=== PATIENT | female | born 1950 | race Caucasian/White ===

== ENCOUNTER 2019-05-15 09:27 | Inpatient (IN) | payer MEDICARE, BC ==
[~2019-05-15] VITALS: Ht 157.5 cm; Wt 59.9 kg
--- NOTE | 2019-05-15 10:07 | NUR ---
JILL FLORENTINO AT BEDSIDE FOR MSE.
[2019-05-15 10:08] LABS: *BILIRUBIN,URIN NEGATIVE (NEGATIVE); *BLOOD, URINE 2+ (NEGATIVE); *CLARITY,URINE SLIGHTLY CLOUDY (CLEAR); *COLOR,URINE YELLOW (YELLOW); *KETONES,URINE 1+ (NEGATIVE); *UROBILINOGEN,URINE 0.2 E.U./dl (NORMAL); LEUKOCYTE ESTERASE ,URINE 1+ (NEGATIVE); NITRITE, URINE POSITIVE (NEGATIVE); PH,URINE 5.5 (5.0-8.0); UGLUCOSE NEGATIVE (NEGATIVE)
[2019-05-15 10:14] LABS: BACTERIA,URINE MANY /HPF (NONE SEEN); SQUAMOUS EPITHELIAL CELL,UR FEW /HPF (NONE SEEN)
[2019-05-15 10:15] LABS: WBC,URINE 20-50 /HPF (0-3)
[2019-05-15] MEDS ORDERED: IV NORMAL SALINE 1000 ML BAG IV ONE (10:15)
[2019-05-15] MEDS ORDERED: ACETAMINOPHEN 325 MG TABLET PO ONE (10:15)
[2019-05-15 10:16] LABS: URINE AMORPHOUS URATE FEW /HPF
[2019-05-15] MEDS ORDERED: ACETAMINOPHEN 325 MG TABLET ONE (10:22)
--- NOTE | 2019-05-15 10:31 | NUR ---
PT TAKEN TO RADIOLOGY FOR CT SCAN.
[2019-05-15 10:36] LABS: BASOPHILS % (AUTO) 0.3 % (0.0-2.0); EOSINOPHILS % (AUTO) 0.2 % (0.0-7.0); HEMATOCRIT 39.6 % (31.2-41.9); HEMOGLOBIN 12.8 g/dL (10.9-14.3); LYMPHOCYTES # (AUTO) 1.1 K/uL (20.0-40.0); LYMPHOCYTES % (AUTO) 10.9 % (20.5-51.5); MEAN CORPUSCULAR HEMOGLOBIN 26.8 uug (24.7-32.8); MEAN CORPUSCULAR HGB CONC 32 g/dL (32.3-35.6); MEAN CORPUSCULAR VOLUME 82.9 fL (75.5-95.3); MONOCYTES # (AUTO) 0.8 K/uL (2.0-10.0); MONOCYTES % (AUTO) 8.4 % (0.0-11.0); NEUTROPHILS # (AUTO) 7.9 K/uL (1.8-8.9); NEUTROPHILS % (AUTO) 80.2 % (38.5-71.5); RED BLOOD CELL COUNT(AUTO) 4.78 MIL/uL (3.63-4.92); WHITE BLOOD COUNT (AUTO) 9.9 K/uL (3.8-11.8)
[2019-05-15 10:38] LABS: CREATININE 0.8 mg/dL (0.6-1.3); POTASSIUM 3.9 mmol/L (3.5-5.1)
--- NOTE | 2019-05-15 10:43 | NUR ---
PT BACK IN ER FROM RADIOLOGY.
[2019-05-15 10:44] LABS: BILIRUBIN,DIRECT 0.1 mg/dL (0.0-0.2); BILIRUBIN,TOTAL 0.6 mg/dL (0.2-1.0); TOTAL PROTEIN, SERUM 7.5 g/dL (6.4-8.2)
[2019-05-15 10:58] LABS: PLATELET COUNT (AUTO) 199 K/uL (179-408)
[2019-05-15] MEDS ORDERED: CEFTRIAXONE 1 G in IV DEXTROSE 5% 50 ML IV ONE (11:15)
[2019-05-15] MEDS ORDERED: CEFTRIAXONE 1 G VIAL ONE (11:24)
[2019-05-15] MEDS ORDERED: ACETAMINOPHEN 325 MG TABLET PO PRN (13:00)
[2019-05-15] MEDS ORDERED: ONDANSETRON 4 MG/2 ML VIAL IV PRN (13:00)
[2019-05-15] MEDS ORDERED: Z GUARD REMEDY PASTE 57 GM TUBE TOP PRN (13:00)
[2019-05-15] MEDS ORDERED: MAGNESIUM HYDROXIDE 30 ML LIQUID UDC PO PRN (13:00)
[2019-05-15] MEDS ORDERED: HYDROCODONE/APAP 5-325MG TABLET PO PRN (13:00)
--- NOTE | 2019-05-15 13:20 | NUR ---
Received patient from ER and admitted to [facility] with diagnosis of UTI, no sob noted at this. no c/o pain at this time. Belongings accounted and signed. md aware of patient arrived in the unit, provide orders and will continue to monitor and continue treatment plan.
--- NOTE | 2019-05-15 13:21 | NUR ---
REPORT WAS GIVEN TO RN M/S. PT WAS TRANSFERED TO ROOM #302.
[2019-05-15 15:28] VITALS: BP 110/64
[2019-05-15] MEDS: IV NS 1000 ML 1,000 ML IV PRN (18:49)
--- NOTE | 2019-05-15 18:59 | NUR ---
PATIENT ALERT AND ORIENTED , ABLE TO MAKE NEEDS KNOWN, AMBULATORY, NO SOB AND NO C/O PAIN AT THIS TIME. IV INTACT AND PATENT ON CONTINUOS FLUID OF NS 75 ML/HR. SAFETY PROVIDED AT ALL TIMES. WILL CONTINUE TO MONITOR.
--- NOTE | 2019-05-15 19:30 | NUR ---
PATIENT ALERT ORIENTED NO SOB NO CHEST PAIN. PATIENT CONTINENT OF BLADDER, REQUIRES MIN ASSIST WITH TOILETING. CONT TO MONITOR.
[2019-05-15 20:00] VITALS: BP 106/57
[2019-05-16 06:01] VITALS: BP 125/62
[2019-05-16] MEDS: PANTOPRAZOLE SODIUM 40 MG TABLET.DR PO SCH (06:02)
[2019-05-16 06:07] LABS: BASOPHILS % (AUTO) 0.1 % (0.0-2.0); EOSINOPHILS % (AUTO) 0.7 % (0.0-7.0); MEAN CORPUSCULAR HEMOGLOBIN 27.2 uug (24.7-32.8); MEAN CORPUSCULAR HGB CONC 33 g/dL (32.3-35.6); MEAN CORPUSCULAR VOLUME 83.6 fL (75.5-95.3); MONOCYTES # (AUTO) 0.5 K/uL (2.0-10.0); MONOCYTES % (AUTO) 8.2 % (0.0-11.0); NEUTROPHILS # (AUTO) 4.9 K/uL (1.8-8.9); PLATELET COUNT (AUTO) 183 K/uL (179-408); RED BLOOD CELL COUNT(AUTO) 4.42 MIL/uL (3.63-4.92); WHITE BLOOD COUNT (AUTO) 6.6 K/uL (3.8-11.8)
[2019-05-16 06:23] LABS: CREATININE 0.7 mg/dL (0.6-1.3); MAGNESIUM 1.9 mg/dL (1.8-2.4); PHOSPHOROUS 2.5 mg/dL (2.5-4.9); POTASSIUM 3.7 mmol/L (3.5-5.1)
[2019-05-16 06:30] LABS: THYROID STIMULATING HORMONE 5.747 mIU/mL (0.358-3.740)
--- NOTE | 2019-05-16 06:40 | NUR ---
PATIENT ALERT ORIENTED, NO SOB NO CHEST PAIN. PATIENT VOIDING WITH YELLOW COLOR URINE. CONT TO MONITOR.
[2019-05-16] MEDS: CEFTRIAXONE 1 G in IV DEXTROSE 5% 50 ML IV SCH (09:03)
--- NOTE | 2019-05-16 10:00 | NUR ---
Received pt. in bed in no distress. A/OX4 verbally responsive and able to make her needs known. No new skin condition. All needs attended and met promptly. All due medications given as ordered and tolerated well. On IV ABX with no ASE noted. Safety measures in place. Call light and all frequently used items within pt. reach. Will continue to monitor accordingly.
[2019-05-16 11:29] VITALS: BP 92/53
[2019-05-16 14:51] VITALS: BP 118/53
[2019-05-16] MEDS: IV NS 1000 ML 1,000 ML IV PRN (17:04)
--- NOTE | 2019-05-16 18:44 | NUR ---
End of shift note: No significant change during this shift. All needs attended and met promptly. Seen by ENVIRONMENTAL STUDIES PROFESSOR, aware of elevated TSH lv. Free T4 ordered. Remained on IV fluids NS 0.95 at 75 CC/hr. Safety measures in placed. Bed in low position, brake on, side rails up x2 as an enabler. Call light and all frequently used items within pt. reach. Will endorse to next shift accordingly.
--- NOTE | 2019-05-16 20:00 | NUR ---
RECEIVED PATIENT AWAKE AND ALERT IN BED, RESTING COMFORTABLY. PATIENT IS ORIENTED X4 AND HAS NO COMPLAINTS OF PAIN AT THIS TIME. ALL SAFETY AND FALL PRECAUTION MEASURES ARE IN PLACE. PERSONAL ITEMS AND CALL LIGHT ARE WITHIN REACH AT ALL TIMES. WILL CONTINUE TO MONITOR.
[2019-05-16 20:14] VITALS: BP 117/60
--- NOTE | 2019-05-17 05:00 | NUR ---
PATIENT RESTED COMFORTABLY ALL NIGHT WITH NO COMPLAINTS OF PAIN OR DISTRESS VERBALIZED. ALL SAFETY AND FALL PRECAUTION MEASURES REMAIN IN PLACE. PERSONAL ITEMS AND CALL LIGHT REMAIN WITHIN REACH AT ALL TIMES.
[2019-05-17] MEDS: PANTOPRAZOLE SODIUM 40 MG TABLET.DR PO SCH (06:01)
[2019-05-17 06:30] LABS: BASOPHILS % (AUTO) 0.5 % (0.0-2.0); EOSINOPHILS # (AUTO) 0.1 K/uL (0.0-0.7); EOSINOPHILS % (AUTO) 2.7 % (0.0-7.0); HEMATOCRIT 36.9 % (31.2-41.9); HEMOGLOBIN 12.1 g/dL (10.9-14.3); LYMPHOCYTES # (AUTO) 1.2 K/uL (20.0-40.0); LYMPHOCYTES % (AUTO) 27.3 % (20.5-51.5); MEAN CORPUSCULAR HEMOGLOBIN 27.2 uug (24.7-32.8); MEAN CORPUSCULAR HGB CONC 33 g/dL (32.3-35.6); MEAN CORPUSCULAR VOLUME 83.1 fL (75.5-95.3); MONOCYTES # (AUTO) 0.4 K/uL (2.0-10.0); MONOCYTES % (AUTO) 8.9 % (0.0-11.0); NEUTROPHILS # (AUTO) 2.7 K/uL (1.8-8.9); NEUTROPHILS % (AUTO) 60.6 % (38.5-71.5); PLATELET COUNT (AUTO) 204 K/uL (179-408); RED BLOOD CELL COUNT(AUTO) 4.44 MIL/uL (3.63-4.92); WHITE BLOOD COUNT (AUTO) 4.4 K/uL (3.8-11.8)
[2019-05-17 06:38] LABS: CREATININE 0.8 mg/dL (0.6-1.3); PHOSPHOROUS 3.3 mg/dL (2.5-4.9); POTASSIUM 4.2 mmol/L (3.5-5.1)
[2019-05-17] MEDS: IV NS 1000 ML 1,000 ML IV PRN (06:40)
[2019-05-17 06:50] VITALS: BP 113/64
[2019-05-17] MEDS: CEFTRIAXONE 1 G in IV DEXTROSE 5% 50 ML IV SCH (08:28)
[2019-05-17 11:02] VITALS: BP 113/69
[2019-05-17] MEDS ORDERED: CEPH-570 PO (11:20)
--- NOTE | 2019-05-17 13:39 | NUR ---
PATIENT DISCHARGED HOME, STABLE CONDITION, ALERT, ORIENTED X4, NO SOB, RESP EVEN NONLABORED,SKIN WARM AND DRY TO TOUCH, PATIENT DROVE HER CAR HERSELF HOME. NO ACUTE DISTRESS NOTED, BELONGINGS ACCOUNTED AND SIGNED, ID BAND AND IV REMOVED.
== END 2019-05-17 12:30 | disposition home or self-care (01) | DRG 690 ==
LOC: ER 09:27 → MEDSURG3 12:53
PROVIDERS: ADMIT Student in an Organized Health Care Education/Training Program; ATTEND Student in an Organized Health Care Education/Training Program
DX: N12 Tubulo-interstitial nephritis, not specified as acute or chronic (principal); E87.1 Hypo-osmolality and hyponatremia; E44.1 Mild protein-calorie malnutrition; Z68.24 Body mass index [BMI] 24.0-24.9, adult; Z82.49 Family history of ischemic heart disease and other diseases of the circulatory system; E03.9 Hypothyroidism, unspecified; B96.20 Unspecified Escherichia coli [E. coli] as the cause of diseases classified elsewhere
CPT/HCPCS: 36415; 83605; 83690; 83735; 84100; 84443; 85025; 87040; 87077; 87086; A4663; G0378; J0696; J7030; J7060

== ENCOUNTER 2020-06-19 13:15 | Emergency (ER) | payer MEDICARE, BC ==
[~2020-06-19] VITALS: Ht 157.5 cm; Wt 63.5 kg
[~2020-06-19 13:15] MED LIST: CEPH-570 PO
[2020-06-19] MEDS ORDERED: SULF1TAB48 PO (13:51)
[2020-06-19] MEDS ORDERED: CEFTRIAXONE 2 G in IV DEXTROSE 5% 100 ML IV ONE (14:00)
[2020-06-19] MEDS ORDERED: CEFTRIAXONE 1 G VIAL ONE (14:03)
--- NOTE | 2020-06-19 14:21 | NUR ---
PT WAS EVALUATED BY DR OQUENDO. PT WAS MEDICATED ACCORDING TO ER MD ORDERS. PT TOLERATED TO MEDICATIONS WITHOUT COMPLICATIONS, PT WAS D/C'd TO HOME. D/C INSTRUCTIONS GIVEN TO THE PT BY DR OQUENDO.
--- NOTE | 2020-06-19 14:23 | NUR ---
PT's ROCEPHIN IV INFUSION WAS COMPLETED AT 1424. NO S/S OF ADVERSE REACTION.
[2020-06-19 14:24] VITALS: BP 136/84
[2020-06-19 14:41] LABS: *BILIRUBIN,URIN NEGATIVE (NEGATIVE); *BLOOD, URINE NEGATIVE (NEGATIVE); *CLARITY,URINE CLEAR (CLEAR); *COLOR,URINE YELLOW (YELLOW); *KETONES,URINE NEGATIVE (NEGATIVE); *UROBILINOGEN,URINE 0.2 E.U./dl (NORMAL); LEUKOCYTE ESTERASE ,URINE 1+ (NEGATIVE); NITRITE, URINE NEGATIVE (NEGATIVE); UGLUCOSE NEGATIVE (NEGATIVE)
[2020-06-19 17:17] LABS: RBC,URINE 0-3 /HPF (0-3); SQUAMOUS EPITHELIAL CELL,UR FEW /HPF (NONE SEEN)
[2020-06-19 17:33] LABS: BACTERIA,URINE FEW /HPF (NONE SEEN)
== END 2020-06-19 14:25 | disposition home or self-care (01) ==
LOC: ER 13:15
DX: N39.0 Urinary tract infection, site not specified (principal); Z87.440 Personal history of urinary (tract) infections; Z82.49 Family history of ischemic heart disease and other diseases of the circulatory system
CPT/HCPCS: 81001; 87086; 96365; 99284; J0696; A4663; J3490

== ENCOUNTER 2020-09-03 11:22 | Emergency (ER) | payer MEDICARE, BC ==
[~2020-09-03] VITALS: Ht 157.5 cm; Wt 61.2 kg
[~2020-09-03 11:22] MED LIST changes: +SULF1TAB48 PO
--- NOTE | 2020-09-03 11:56 | NUR ---
PATIENT WAS SEEN BY . URINE SENT TO LAB
[2020-09-03 12:49] LABS: *BILIRUBIN,URIN NEGATIVE (NEGATIVE); *CLARITY,URINE SLIGHTLY CLOUDY (CLEAR); *COLOR,URINE LIGHT YELLOW (YELLOW); *KETONES,URINE NEGATIVE (NEGATIVE); *UROBILINOGEN,URINE 0.2 E.U./dl (NORMAL); LEUKOCYTE ESTERASE ,URINE 2+ (NEGATIVE); NITRITE, URINE NEGATIVE (NEGATIVE); PH,URINE 7.5 (5.0-8.0); UGLUCOSE NEGATIVE (NEGATIVE)
[2020-09-03 12:51] LABS: *BLOOD, URINE TRACE (NEGATIVE)
--- NOTE | 2020-09-03 13:03 | NUR ---
DC, RX AND FOLLOW UP INSTRUCTIONS GIVEN AND EXPLAINED TO PATIENT WHO STATES SHE UNDERSTANDS ALL INSTRUCTIONS
[2020-09-03 15:02] LABS: RBC,URINE 0-3 /HPF (0-3)
[2020-09-03 15:03] LABS: BACTERIA,URINE FEW /HPF (NONE SEEN); SQUAMOUS EPITHELIAL CELL,UR FEW /HPF (NONE SEEN); WBC,URINE 20-50 /HPF (0-3)
== END 2020-09-03 13:05 | disposition home or self-care (01) ==
LOC: ER 11:22
DX: N30.00 Acute cystitis without hematuria (principal); Z88.1 Allergy status to other antibiotic agents; Z87.440 Personal history of urinary (tract) infections; K21.9 Gastro-esophageal reflux disease without esophagitis
CPT/HCPCS: 87077; 87086; A4663

== ENCOUNTER 2021-04-11 07:56 | Emergency (ER) | payer MEDICARE, BC ==
[~2021-04-11] VITALS: Ht 157.5 cm; Wt 59.9 kg
--- NOTE | 2021-04-11 08:11 | NUR ---
at bedside for assessment
[2021-04-11 08:16] LABS: *BILIRUBIN,URIN NEGATIVE (NEGATIVE); *BLOOD, URINE 2+ (NEGATIVE); *CLARITY,URINE CLOUDY (CLEAR); *COLOR,URINE YELLOW (YELLOW); *KETONES,URINE NEGATIVE (NEGATIVE); *UROBILINOGEN,URINE 0.2 E.U./dl (NORMAL); LEUKOCYTE ESTERASE ,URINE 3+ (NEGATIVE); NITRITE, URINE NEGATIVE (NEGATIVE); UGLUCOSE NEGATIVE (NEGATIVE)
[2021-04-11] MEDS ORDERED: PHEN-705 PO (08:51)
[2021-04-11] MEDS ORDERED: NITR100C PO (08:51)
--- NOTE | 2021-04-11 08:56 | NUR ---
Patient discharged to home in stable condition. Rx faxed to pharmacy. Written and verbal after care instructions given. No signs of acute distress noted. Took all belongings. Patient verbalizes understanding of instructions. Stressed follow up or return to ER for worsening s/s.
[2021-04-11 09:58] VITALS: BP 139/76
[2021-04-11 10:25] LABS: WBC,URINE TNTC /HPF (0-3)
[2021-04-11 10:26] LABS: BACTERIA,URINE MOD /HPF (NONE SEEN); SQUAMOUS EPITHELIAL CELL,UR FEW /HPF (NONE SEEN)
== END 2021-04-11 08:55 | disposition home or self-care (01) ==
LOC: ER 07:56
DX: N39.0 Urinary tract infection, site not specified (principal); K21.9 Gastro-esophageal reflux disease without esophagitis; R03.0 Elevated blood-pressure reading, without diagnosis of hypertension; Z82.49 Family history of ischemic heart disease and other diseases of the circulatory system
CPT/HCPCS: 87077; 87086; A4663